=== PATIENT | female | born 1980 | race Caucasian/White ===

== ENCOUNTER 2024-10-20 23:32 | Emergency (ER) | payer BC ==
[~2024-10-20] VITALS: Ht 157.5 cm; Wt 55.0 kg
[2024-10-20 23:46] VITALS: BP 120/102
[2024-10-20] MEDS ORDERED: POVIDONE IODINE 0.5 OZ/BTL TOP STA (23:53)
[2024-10-20] MEDS ORDERED: LIDOCAINE W/ EPINEPHRINE 10 MG/ML INJ STI STA (23:53)
[2024-10-20] MEDS ORDERED: SULFAMETHOXAZOLE W/TRIMETHOPRI 1 COMBO TAB PO STA (23:53)
[2024-10-21] VITALS: BP 124/84
[2024-10-21 00:15] VITALS: BP 123/73
[2024-10-21] MEDS ORDERED: BACTRIM DS1 TAB PO (00:21)
[2024-10-21 00:30] VITALS: BP 113/75
[2024-10-21] MEDS ORDERED: IBUPROFEN 800 MG/TAB PO ONE (00:40)
[2024-10-21] MEDS ORDERED: ACETAMINOPHEN 500 MG TAB PO ONE (00:40)
[2024-10-21 00:45] VITALS: BP 126/76
[2024-10-21 02:29] VITALS: BP 126/76
== END 2024-10-21 00:50 | disposition home or self-care (01) | DRG 581 ==
LOC: ED 23:32
PROC: 0H99XZZ Drainage of Perineum Skin, External Approach (ICD-10-PCS; principal; 2024-10-21)
DX: L02.215 Cutaneous abscess of perineum (principal)